=== PATIENT | male | born 1995 | race Caucasian/White ===

== ENCOUNTER 2018-01-21 21:43 | Emergency (ER) | payer OTHER ==
[2018-01-21] MEDS: KETOROLAC TROMETHAMINE 10 MG TAB PO (22:40)
[2018-01-21] MEDS: ACETAMINOPH W/CODEINE #3 TAB UD PO (22:41)
== END 2018-01-21 22:48 | disposition home or self-care (01) ==
LOC: M ED 21:43
DX: M66.872 Spontaneous rupture of other tendons, left ankle and foot (principal); X58.XXXA Exposure to other specified factors, initial encounter; Y92.89 Other specified places as the place of occurrence of the external cause; Y99.1 Military activity
CPT/HCPCS: 73610

== ENCOUNTER 2018-03-11 01:16 | Emergency (ER) | payer OTHER ==
[~2018-03-11] VITALS: Ht 182.9 cm; Wt 81.8 kg
[~2018-03-11 01:16] MED LIST: ACET30TAB PO; KETO10TAB PO
[2018-03-11 01:38] LABS: HEMATOCRIT 45.8 % (42.0-52.0); HEMOGLOBIN 15.4 g/dl (13.5-17.5); MEAN CORPUSCULAR HEMOGLOBIN 30.3 pg (27.0-33.0); MEAN CORPUSCULAR HGB CONC 33.6 g/dl (32.0-36.5); MEAN CORPUSCULAR VOLUME 90.2 fl (80.0-96.0); PLATELET COUNT, AUTOMATED 202 10^3/uL (150-450); RED BLOOD COUNT 5.08 10^6/uL (4.30-6.10); WHITE BLOOD COUNT 6.9 10^3/uL (4.0-10.0)
[2018-03-11 02:07] LABS: AMPHETAMINES LEVEL URINE NEGATIVE (NEGATIVE); BARBITURATES URINE NEGATIVE (NEGATIVE); BENZODIAZEPINES URINE NEGATIVE (NEGATIVE); CANNABINOIDS URINE NEGATIVE (NEGATIVE); COCAINE METABOLITE URINE NEGATIVE (NEGATIVE); METHADONE URINE NEGATIVE (NEGATIVE); OPIATES URINE NEGATIVE (NEGATIVE); PHENCYCLIDINE URINE NEGATIVE (NEGATIVE)
[2018-03-11 02:18] LABS: ACETAMINOPHEN LEVEL < 2.0 UG/ML (10.0-30.0); ALBUMIN 4.1 GM/DL (3.2-5.2); ALT/SGPT 25 U/L (12-78); BILIRUBIN,DIRECT 0.3 MG/DL (0.0-0.2); BILIRUBIN,TOTAL 1.4 MG/DL (0.2-1.0); BLOOD UREA NITROGEN 10 MG/DL (7-18); CALCIUM LEVEL 8.3 MG/DL (8.5-10.1); CARBON DIOXIDE LEVEL 28 MEQ/L (21-32); CHLORIDE LEVEL 106 MEQ/L (98-107); CREATININE FOR GFR 0.95 MG/DL (0.70-1.30); ETHYL ALCOHOL (ETHANOL) 0.048 % (0.000-0.010); GLOMERULAR FILTRATION RATE > 60.0 (>60); GLUCOSE, FASTING 138 MG/DL (70-100); POTASSIUM SERUM 3.4 MEQ/L (3.5-5.1); SALICYLATE LEVEL < 1.7 MG/DL (5.0-30.0); SODIUM LEVEL 142 MEQ/L (136-145); TOTAL PROTEIN 7.3 GM/DL (6.4-8.2)
[2018-03-11] MEDS ORDERED: NICOTINE 14 MG/24 HR TRANSDERMAL TD ONE (02:30)
[2018-03-11 03:26] VITALS: BP 130/78
== END 2018-03-11 03:37 | disposition home or self-care (01) ==
LOC: M ED 01:16
DX: F43.0 Acute stress reaction (principal); F17.210 Nicotine dependence, cigarettes, uncomplicated
CPT/HCPCS: 36415; 80048; 80076; 80307; 84443; 85027; 99284; G0480

== ENCOUNTER 2018-05-23 11:31 | Emergency (ER) | payer OTHER ==
[~2018-05-23] VITALS: Ht 182.9 cm; Wt 81.8 kg
--- NOTE | 2018-05-23 12:40 | REP ---
SCROTAL SONOGRAPHY: HISTORY: Right testicular pain and swelling. FINDINGS: High-resolution bilateral scrotal sonography is performed. No intratesticular mass lesion is seen on either side. Scrotal Doppler flow is normal bilaterally. Resistive indices are 0.56 on the right and 0.50 on the left. Right testicular dimensions are 4.4 x 8-0.5 x 3.1 cm. Left testis measures 4.1 x 2.1 x 2.7 cm. There is a 0.2 cm cyst in the head of the epididymis on the left. A left-sided varicocele is noted. There are a few microcalcifications in the right testis. IMPRESSION: Normal Doppler flow. Small to moderate left-sided varicocele. Otherwise negative. Electronically Signed by Chris Alatorre MD 05/23/2018 07:45 P
[2018-05-23 13:40] VITALS: BP 120/59
[2018-05-23 14:08] LABS: CHLAMYDIA DNA AMPLIFICATION NEGATIVE (NEGATIVE); GC DNA AMPLIFICATION NEGATIVE (NEGATIVE)
== END 2018-05-23 13:42 | disposition home or self-care (01) ==
LOC: M ED 11:31
DX: N45.1 Epididymitis (principal); N43.2 Other hydrocele; F32.9 Major depressive disorder, single episode, unspecified; F17.210 Nicotine dependence, cigarettes, uncomplicated

== ENCOUNTER 2018-10-16 21:56 | Emergency (ER) | payer OTHER ==
[~2018-10-16] VITALS: Ht 182.9 cm; Wt 85.0 kg
[~2018-10-16 21:56] MED LIST changes: +ACET-716 PO; -ACET30TAB PO
[2018-10-17] MEDS ORDERED: KETOROLAC 60 MG/2 ML VIAL (J1885) IM ONE (02:00)
[2018-10-17 02:56] VITALS: BP 117/58
--- NOTE | 2018-10-17 09:43 | REP ---
Right hand series: Four views. History: A softball injury. Findings: Four views of the right hand demonstrate an old healed fracture of the distal end of the fifth metacarpal. No acute fracture is seen. Overall mineralization pattern is normal. Bones and joints are otherwise unremarkable. Impression: Old healed fifth metacarpal fracture. No acute fracture is seen. Electronically Signed by Chris Alatorre MD 10/17/2018 07:30 P
== END 2018-10-17 02:57 | disposition home or self-care (01) ==
LOC: M ED 21:56
DX: S60.221A Contusion of right hand, initial encounter (principal); W21.07XA Struck by softball, initial encounter; Y93.64 Activity, baseball; Y92.9 Unspecified place or not applicable; Z87.81 Personal history of (healed) traumatic fracture
CPT/HCPCS: 73130; 96372; 99284; J1885

== ENCOUNTER 2018-11-29 01:31 | Emergency (ER) | payer OTHER | END 2018-11-29 03:21 | disposition left against medical advice (07) | LOC: M ED 01:31 | DX: Z53.21 Procedure and treatment not carried out due to patient leaving prior to being seen by health care provider (principal) ==

== ENCOUNTER 2019-02-05 09:25 | Emergency (ER) | payer OTHER ==
[~2019-02-05] VITALS: Ht 182.9 cm; Wt 84.5 kg
[2019-02-05 09:25] VITALS: BP 138/71
[2019-02-05] MEDS ORDERED: MUCI600T31 PO (10:24)
[2019-02-05] MEDS ORDERED: CETI-36 PO (10:24)
[2019-02-05] MEDS ORDERED: VENTAER INH (10:24)
[2019-02-05] MEDS ORDERED: PRED20TA PO (10:24)
== END 2019-02-05 10:37 | disposition home or self-care (01) ==
LOC: M ED 09:25
DX: J45.909 Unspecified asthma, uncomplicated (principal); F17.210 Nicotine dependence, cigarettes, uncomplicated; Z79.51 Long term (current) use of inhaled steroids